=== PATIENT | female | born 1995 | race Caucasian/White ===

== ENCOUNTER 2018-09-23 15:13 | Observation (INO) ==
[2018-09-23 16:32] LABS: Amphetamine Screen,Urine Negative ng/mL (Cutoff=1000); Barbiturate Screen,Urine Negative ng/mL (Cutoff=200); Benzodiazepines Screen,Urine Negative ng/mL (Cutoff=200); Cannabinoid Screen,Urine Negative ng/mL (Cutoff = 50); Cocaine Screen,Urine Negative ng/mL (Cutoff= 300); Opiate Screen,Urine Negative ng/mL (Cutoff=300); Phencyclidine Screen,Urine Negative ng/mL (Cutoff=25)
[2018-09-23 16:51] LABS: Bilirubin,Urine Negative (Negative); Blood,Urine Negative (Negative); Clarity,Urine Clear (Clear); Color,Urine Dark Yellow (Yellow); Glucose,Urine (UA) >=1000 mg/dL (Normal); Ketones,Urine Trace mg/dL (Negative); Leukocyte Esterase,Urine Negative (Negative); Nitrite,Urine Negative (Negative); Protein,Urine Trace mg/dL (Neg-Trace); Specific Gravity,Urine > 1.030 (1.010-1.025); Urobilinogen,Urine Normal (Normal)
--- NOTE | 2018-09-23 17:28 | Discharge Summary ---
Date of Encounter: 09/23/18 Time of Encounter: 17:26 - Discharge Diagnosis (1) 29 weeks gestation of Priority: Primary Status: Acute Comments: Follow up with midwives as scheduled PTL parameters discussed Discharge home (2) Vaginal discharge during in third trimester Priority: Secondary Status: Acute Comments: Fern negative Nitrazine negative Vaginosis panel negative (3) -related glycosuria Priority: Secondary Status: Acute Comments: Attempted to reach patient to discuss elevated levels of urine glucose as well as trace ketones in the urine and elevated specific gravity. She was unable to be reached at this time. A message was left for her to return a call. - Discharge Medications Prescriptions: No Action Metoclopramide [Reglan] 5 mg PO Q8HR #60 mls Home Medications: Metoclopramide [Reglan] 5 mg PO Q8HR #60 mls 07/19/16 [Rx] Allergies/Adverse Reactions: Allergy/AdvReac Type Severity Reaction Status Date / Time No Known Allergies Allergy Verified 07/19/16 17:47 Data Procedures and tests throughout hospitalization: Laboratory Tests 09/23/18 09/23/18 16:16 16:16 Urine Color Dark Yellow Urine Clarity Clear Urine pH 6.0 Ur Specific [place] > 1.030 H Urine Protein Trace Urine Glucose (UA) >=1000 H Urine Ketones Trace H Urine Blood Negative Urine Nitrite Negative Urine Bilirubin Negative Urine Urobilinogen Normal Ur Leukocyte Esterase Negative Ur Culture Indicated? NO Urine Opiates Screen Negative Ur Barbiturates Screen Negative Ur Phencyclidine Scrn Negative Ur Amphetamines Screen Negative U Benzodiazepines Scrn Negative Urine Cocaine Screen Negative U Marijuana (THC) Screen Negative Ur Drug Screen Interp See Below Labs on day of discharge: Labs from last 24 hours 09/23/18 09/23/18 16:16 16:16 Urine Color Dark Yellow Urine Clarity Clear Urine pH 6.0 Ur Specific [place] > 1.030 H Urine Protein Trace Urine Glucose (UA) >=1000 H Urine Ketones Trace H Urine Blood Negative Urine Nitrite Negative Urine Bilirubin Negative Urine Urobilinogen Normal Ur Leukocyte Esterase Negative Ur Culture Indicated? NO Urine Opiates Screen Negative Ur Barbiturates Screen Negative Ur Phencyclidine Scrn Negative Ur Amphetamines Screen Negative U Benzodiazepines Scrn Negative Urine Cocaine Screen Negative U Marijuana (THC) Screen Negative Ur Drug Screen Interp See Below Date of admission: 09/23/18 15:13 Primary care physician: PCP NONE Discharging clinician: Kristi Tipton Anticipated date of discharge: 09/23/18 - Patient Status Disposition: Home, Self-Care Condition: Good Functional capacity at discharge: independent ambulation Overall status at discharge: patient is progressing back to baseline - Discharge Instructions Follow Up With: NONE,PCP [Primary Care Provider] - Kristi Tipton [Advanced Practice Nurse] - Additional Instructions: LABOR AND DELIVERY DISCHARGE INSTRUCTIONS Signs and Symptoms to be Reported to your Doctor Immediately: * Sudden gush, continuous or intermittent lead of fluid from vagina (note the time of gush and color of fluid) * Onset of bright red vaginal bleeding with or without pain (if you had a vaginal exam during this visit you may notice some dark red spotting. This is normal.) * Lower abdominal cramping or backache that is premenstrual-like feeling. * More than 6 contractions in one hour. * Burning during urination, having to urinate more frequently or pain in your mid-back. * A change in the baby's activity. This could be an increase or decrease in activity. * Severe headache which does not go away with tylenol. * Sudden swelling in the face, hands, arms and/or legs. * Upper abdominal pain - sometimes associated with heartburn or nausea and is not relieved by Maalox, Mylanta or Tums. * Dizziness or blurred vision or visual disturbances (seeing stars/lights). * Kick Counts One hour after a meal, lay down on one side in a quiet place. Count the number of sergio the baby moves during an hour. If less than 6 movements, notify your physician. Diet: *Force fluids - 8-10 tall glasses of fluid per day. May include popsicles and jello. 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 She reports that is clear and has no odor to it. She endorses good movement and denies vaginal bleeding and contractions. Fern test and nitrazine test were negative. Vaginosis panel and urine are pending. Patient requesting to go home and be called with follow-up results from labs. 1851: I called patient on 2 different from lines that were found in her chart she was unable to be reached regarding the elevated glucose in her urine as well as trace ketones and elevated specific gravity. A message is left for her to call back. Time Attestation: Total time spent providing and/or coordinating discharge services: Time Spent: Less than 30 minutes Exam - Constitutional General appearance IM: A&O X 3 - Respiratory Respiratory exam: Present: CTAB - Cardiovascular Cardiovascular exam IM: Present: RRR, +S1, +S2 - GI/Abdominal GI/Abdominal exam IM: normal bowel sounds, no peritoneal signs - Rectal Rectal exam: deferred - Uterine Tone: Firm - Extremities Exam Extremities exam IM: Present: normal capillary refill, normal inspection, radial pulses palpable and symmetrical - Neurological Exam Neurological exam: alert, CN II-XII intact, normal gait, oriented X3, reflexes normal, no focal deficits, strengths equal and symetr throughout - VTE Reasons for not Prescribing Prophylaxis: Treatment not Indicated - Low risk for VTE
[2018-09-23 18:34] LABS: Candida DNA Not Detected (Not Detect); Gardnerella DNA Not Detected (Not Detect); Trichomonas DNA Not Detected (Not Detect)
== END 2018-09-23 17:46 | disposition home or self-care (01) ==
LOC: 1NENULAB
PROVIDERS: ADMIT Advanced Practice Midwife; ATTEND Advanced Practice Midwife

== ENCOUNTER 2018-11-15 07:39 | Observation (INO) ==
[2018-11-15 08:15] LABS: Bilirubin,Urine Negative (Negative); Blood,Urine Negative (Negative); Clarity,Urine Clear (Clear); Color,Urine Dark Yellow (Yellow); Glucose,Urine (UA) Normal (Normal); Ketones,Urine >=160 mg/dL (Negative); Leukocyte Esterase,Urine Small (Negative); Nitrite,Urine Negative (Negative); PH,Urine 6.5 pH Units (5.0-8.0); Protein,Urine Negative (Neg-Trace); Urobilinogen,Urine Normal (Normal)
[2018-11-15 08:16] LABS: Bacteria,Urine Few per hpf (None-Few); Hyaline Casts,Urine None Seen per lpf (None-Few); Squamous Epithelial Cell,Urine Many per lpf (None-Few)
[2018-11-15 08:23] LABS: Amphetamine Screen,Urine Negative ng/mL (Cutoff=1000); Barbiturate Screen,Urine Negative ng/mL (Cutoff=200)
[2018-11-15 08:25] LABS: Benzodiazepines Screen,Urine Negative ng/mL (Cutoff=300); Cannabinoid Screen,Urine Negative ng/mL (Cutoff = 50); Cocaine Screen,Urine Negative ng/mL (Cutoff= 300); Opiate Screen,Urine Negative ng/mL (Cutoff=300); Phencyclidine Screen,Urine Negative ng/mL (Cutoff=25)
--- NOTE | 2018-11-15 10:44 | OB/GYN Progress Note ---
Date of Encounter: 11/15/18 Time of Encounter: 10:42 - Assessment and Plan (1) 37 weeks gestation of Current Visit: Yes Status: Acute (2) False labor Current Visit: Yes Status: Acute Repeat SVE unchanged x2. Discharge home with labor precautions. Subjective - Subjective Interval history: 23 year-old presenting at 37w2d with c/o contractions since 1900 last evening. She reports they woke her about every 1.5 hours last night. She reports they get stronger and closer when she walks but decrease when she lays down. No leaking or bleeding. Good FM. No other complaints. Antepartum ROS: movement normal, contractions, no loss of fluid, no vaginal bleeding Objective - Vital Signs Vital Signs: Intake and Output 11/14/18 11/15/18 11/15/18 23:59 07:59 15:59 Other: Weight 93.9 kg Patient Weight 11/15/18 23:59 Weight 93.9 kg - Exam FHR: category 1 FHR comments: NST reactive. 145 BPM Auscultation: bilateral: normal Abdomen: Present: soft, gravid. Absent: tenderness Uterus: Absent: tenderness Cervical dilation: 2cm with repeat exam unchanged x2 per RN - Labs Labs: Abnormal lab results >=160 mg/dL (Negative) H 11/15/18 07:55 Ur Leukocyte Esterase Small (Negative) H 11/15/18 07:55 5-15 per hpf (0-3) H 11/15/18 07:55 3-5 per hpf (0-3) H 11/15/18 07:55 Ur Squamous Epith Cells Many per lpf (None-Few) H 11/15/18 07:55 Ur Culture Indicated? YES (NO) A 11/15/18 07:55
== END 2018-11-15 10:44 | disposition home or self-care (01) ==
LOC: 1NENULAB
PROVIDERS: ADMIT Registered Nurse; ATTEND Registered Nurse

== ENCOUNTER 2018-11-27 06:00 | Inpatient (IN) ==
[2018-11-27] MEDS ORDERED: Famotidine 20 MG/2 ML VIAL IVP PRN (06:16)
[2018-11-27] MEDS ORDERED: Naloxone 0.4 MG/ML INJ IVP PRN (06:16)
[2018-11-27] MEDS ORDERED: Lidocaine 1% 20 ML MDV INFILT PRN (06:16)
[2018-11-27] MEDS ORDERED: *HR* Nalbuphine 10 MG/ML AMPUL IVP PRN (06:16)
[2018-11-27] MEDS ORDERED: Metoclopramide 10 MG/2 ML VIAL IVP PRN (06:16)
[2018-11-27] MEDS ORDERED: Ondansetron 4 MG/2 ML VIAL IVP PRN (06:16)
[2018-11-27] MEDS ORDERED: miSOPROStol 25 MCG TABLET PO ONE (06:20)
[2018-11-27] MEDS ORDERED: Penicillin G Potassium 5,000,000 UNIT in 0.9 % Sodium Chloride Mini Bag 100 ML IVPB ONE (06:20)
[2018-11-27] MEDS ORDERED: Ringers Solution, Lactated 1,000 ML IVC SCH (06:30)
--- NOTE | 2018-11-27 06:44 | OB/GYN History & Physical ---
Date of Encounter: 11/27/18 Time of Encounter: 06:43 Assessment and Plan (1) 39 weeks gestation of Current visit: Yes Status: Acute Admit to L&D for induction of labor 50 g Cytotec by mouth Double kearney balloon placed with 60 mL in each balloon Continuous electronic monitoring Labs-CBC and type and screen Pain management plan is epidural - may have upon request Anticipate vaginal delivery Dr. Gallegos is the OB on-call and is available as needed (2) Intrauterine Current visit: Yes Status: Acute (3) Intact amniotic membranes during in third trimester Current visit: Yes Status: Acute (4) Type A blood, Rh negative Current visit: Yes Status: Acute Cord blood to be collected for analysis on delivery (5) GBS (group B Streptococcus carrier), +RV culture, currently Current visit: Yes Status: Acute 5 million units penicillin IV 1 followed by 2.5 million units penicillin IV every 4 hours until delivery History of Present Illness Chief complaint: Scheduled IOL HPI: Ms. Ortega is a 23 year old female at 39 weeks 0 days gestation with an estimated date of of 12/04/18 dated by initial exam. She presents today for scheduled induction of labor at term. She endorses good movement and denies leakage of fluid, vaginal bleeding, contractions. She has been followed by the midwives throughout her . Her has been uncomplicated. records are available electronically and have been reviewed. Labs: A- GBS+ HIV- Hep B- T. Palladium- GC/CL- Rubella immune Varicella immune Past Med Surg Social Fam HX - Past Medical History Medical history: no medical history Psychiatric history: no psych history - Past Surgical History Additional surgical history: R leg sx for compound fx. - Social History Smoking Status: Never smoker Alcohol use: none Drug use: none - Family History Mother Living Status: Still Living Hx Family Cardiac Disorders: No Hx Family Respiratory Disorders: No Hx Family Cancer: No Hx Family GI Disorders: No Hx Family Endocrine Disorder: No Hx Family Neuromuscular Disorders: No Hx Family Neurologic Disorders: No Hx Family HEENT Disorders: No Hx Family Autoimmune Disorders: No Hx Family Psychosocial Disorders: Yes (anxiety and depression) Obstetrical History - Pregnancies : 3 Para: 1 Term: 1 (# 2: 03/04/2017,female, normal spontaneous vaginal delivery (), no complications, full term, 7lbs) : 0 Ab's: 1 (# 1: 2014., ectopic at 7 weeks) Livin Medications and Allergies [id number]/Ferrous Fumarate/FA [Kro Vitamins Tablet] 1 mg PO DAILY 11/15/18 [History] Allergy/AdvReac Type Severity Reaction Status Date / Time No Known Allergies Allergy Verified 11/27/18 06:31 Review of System OB All systems PM: reviewed and no additional remarkable complaints except as stated Exam - Constitutional Constitutional: well developed, well nourished, no acute distress, obese - HEENT HEENT: PERRL, Normocephaly, Mucus Membranes Moist - Neck Neck exam: full ROM - Lungs Respiratory exam: CTAB - Cardiovascular Cardiovascular exam: RRR, +S1, +S2 - Breasts Breast: bilateral: normal - Abdomen Abdomen: Present: bowel sounds normal, gravid, non tender - Extremities Extremities exam: full ROM, normal capillary refill, normal inspection, radial pulses palpable and symmetrical - Vulva Vulva: bilateral: normal - Vagina Vagina: Present: normal moisture - Cervix Dilation: 3 Effacement: 80 Station: -2 - Uterus Uterus exam: Present: normal contour - Adnexa Adnexa: bilateral: normal - Anus/Rectum Anus/Rectum: Present: normal perianal skin Results Result Diagrams: 11/27/18 06:35 All other labs normal. - VTE Reasons for not Prescribing Prophylaxis: Treatment not Indicated - Low risk for VTE
[2018-11-27 06:50] LABS: Basophils % 0.4 %; Eosinophils # 0.1 K/mcL (0.0-0.6); Eosinophils % 0.7 %; Hematocrit 29.8 % (35.3-44.9); Hemoglobin 9.4 g/dL (11.5-15.4); Lymphocytes # 2.3 K/mcL (0.6-4.6); Lymphocytes % 32.2 %; Mean Corpuscular HGB Conc 31.5 g/dL (31.6-35.5); Mean Corpuscular Hemoglobin 23.9 pg (28.0-33.3); Mean Corpuscular Volume 75.6 fL (83.0-100.0); Mean Platelet Volume 10.2 fL (9.4-12.4); Monocytes # 0.8 K/mcL (0.0-1.3); Platelet Count 253 K/mcL (140-400); Red Blood Count 3.94 M/mcL (3.82-4.97); Red Cell Distribution Width 14.4 % (11.5-14.5); Segmented Neutrophils % 54.7 %
[2018-11-27 06:54] LABS: Amphetamine Screen,Urine Negative ng/mL (Cutoff=1000); Barbiturate Screen,Urine Negative ng/mL (Cutoff=200)
[2018-11-27 06:55] LABS: Benzodiazepines Screen,Urine Negative ng/mL (Cutoff=300); Cannabinoid Screen,Urine Negative ng/mL (Cutoff = 50); Cocaine Screen,Urine Negative ng/mL (Cutoff= 300); Opiate Screen,Urine Negative ng/mL (Cutoff=300); Phencyclidine Screen,Urine Negative ng/mL (Cutoff=25)
[2018-11-27] MEDS ORDERED: *HR* FentaNYL (PF) 100 MCG/2 ML VIAL EP ONE (09:09)
[2018-11-27] MEDS ORDERED: Bupivacaine-MPF 0.25% 10 ML VIAL EP ONE (09:09)
--- NOTE | 2018-11-27 09:09 | Anesthesia Evaluation PreOp ---
Date of Encounter: 11/27/18 Time of Encounter: 09:07 - Past History Planned Operation: JORGE Cardiac History: Denies any Significant Hx Pulmonary History: Denies Any Significant HX MEDICAL CASE MANAGER History: Denies Any Significant HX Other Medical History: Denies Any Significant HX Anesthesia History: No Prior Anesthetic Complications (JORGE x 1--no issues; denies personal and family h/o GA complications) : Yes Alcohol Use: none Drug use: none Medications and Allergies [id number]/Ferrous Fumarate/FA [Kro Vitamins Tablet] 1 mg PO DAILY 11/15/18 [History] Allergy/AdvReac Type Severity Reaction Status Date / Time No Known Allergies Allergy Verified 11/27/18 06:31 - Meds/Allergy Pre-op Review Medications Reviewed: Yes Allergies Reviewed: Yes Beta Blockers on Current Med List: No Anesthesia Results - Labs 11/27/18 06:35 Anesthesia Exam 98/59, HR 77 O2 Sat Height 1.57 m Weight 95.753 kg Pain Scale: 3 Pain Scale Used: Dorene (Faces) - HEENT Pupil (Motor): Pupils equal Mallampati: II Teeth: Normal Oral Opening: Greater than 3 - MEDICAL CASE MANAGER LOC: Oriented MEDICAL CASE MANAGER Motor: Normal RUE, Normal LUE, Normal RLE, Normal LLE, Normal Face MEDICAL CASE MANAGER Sensory: Normal: RUE, LUE, RLE, LLE, Face - Cardiac Rhythm: Regular Murmur: None - Pulmonary Breath Sounds: bilateral Clear Respiratory Effort: Symmetrical Anesthesia Assess/Plan ASA Score: 2 Level of consciousness: Cooperative, Oriented, Tranquil Anesthetic Plan: Epidural Autologous Blood: No Monitoring Plan: Standard Monitors Recovery Plan: Other
[2018-11-27] MEDS ORDERED: Epidural Premix (fent/bupiv) 110 ML EP SCH (09:15)
[2018-11-27] MEDS ORDERED: Bupivacaine-MPF 0.25% 10 ML VIAL ONE (09:26)
[2018-11-27] MEDS ORDERED: *HR* FentaNYL (PF) 100 MCG/2 ML VIAL ONE (09:26)
[2018-11-27] MEDS: Penicillin G Potassium 2,500,000 UNIT in 0.9 % Sodium Chloride 100 ML IVPB SCH ×3 (10:47→19:21)
[2018-11-27] MEDS ORDERED: Oxytocin 20 units/ LR 1000 mL 20 UNIT/1,000 ML BAG IVC ONE (12:19)
[2018-11-27] MEDS: Oxytocin 20 units/ LR 1000 mL 20 UNIT/1,000 ML BAG IVC SCH ×2 (12:28→23:42)
--- NOTE | 2018-11-27 15:21 | Anesthesia Procedures ---
Date of Encounter: 11/27/18 Time of Encounter: 15:19 Procedures: Anesthesia - Epidural/Spinal Patient ID/Chart reviewed: Yes Patient examined: Yes OB Eval: Gestational age: 39 weeks 0 days OB Eval: : 3 OB Eval: Hx Para: 1 OB Eval: Contractions: Non-stressed pattern Consent Obtained: Yes Supplemental Oxygen: None/Room Air Site Prep: Aseptic Technique, Sterile prep and drape, Povidone-Iodine 1% Patient position: upright Local Anesthetic: Lidocaine 1% Amount of Local Anesthetic used: 5 Touhy Needle Gauge: 18 Touhy Needle Depth (cm): 6 Catheter Depth at Skin (cm): 11 Test Dose (1.5% Lido + Epi): Volume given (mls): 5 Test Dose Result: Negative Loading Dose: 0.25% Marcaine (mls): 5 Loading Dose: Fentanyl (mcg): 100 Loading Dose Administered: Thru Catheter Infusion Med: 0.125% Bupivacaine w/ 2 mcg/ml Fentanyl Infusion Rate (mls/hr): 14 (w/ demand bolus of 5mL q30min PRN) Catheter Secured in Place: Tegaderm, Tape Interspace Used: L3-L4 Loss of Resistance (MARI): Yes Blood: No CSF: No Paresthesia: No Procedure: successful on 1st attempt; patient tolerated procedure well; VSS Vitals + FHT's: see Jenna SPARROW's electronic records for VS entry
--- NOTE | 2018-11-27 19:03 | Anesthesia Progress Note ---
Date of Encounter: 11/27/18 Time of Encounter: 19:02 Anesthesia Note - Note Note: Called to patient bedside to evaluate breakthrough labor pain. Patient describes B/L lower pelvic pain/pressure; 10mL of 0.125% bupivicaine in 2 equally divided doses given over a period of 10min. Patient reports improvement in pain. VSS 11/27/18 19:02
--- NOTE | 2018-11-27 19:37 | OB Labor Progress Note ---
Date of Encounter: 11/27/18 Time of Encounter: 15:53 Labor Progress Note - Subjective Subjective: Pt comfortable with epidural - Cervix Cervix: 6-7/80/-1 - Heart Tones Heart Tones: Category I - [place]: irrregular - Interventions Interventions: AROM for large amount clear fluid. - Plan Physician notified: Yes Physician notified details: Dr. Gallegos notified of AROM. Plan: Continue to monitor and titrate pitocin. Anticipate .
--- NOTE | 2018-11-27 22:03 | OB/GYN Procedure Note ---
Delivery - Delivery Date: 11/27/18 Provider: Naz Woods Intrapartum events: none Delivery induction: kearney, misoprostol Delivery augmentation: rupture of membranes, pitocin Delivery monitor: external FHT, external uterine Anesthesia: epidural Quantitated Blood Loss: 200 - (s) A Infant Delivery Date: 11/27/18 Delivery Time: 21:05 Presentation: vertex Position: OA Route of delivery: Gender: Male Viability: Viable Pounds: 9 Ounces: 4 Weight Gram: 4.195 kg at 1 minute: 6 at 5 mins: 9 Shoulder Dystocia: not encountered Specimens collected: cord blood, venous cord gases, arterial cord gases Placenta: spontaneous Cord: nuchal cord (around shoulder, delivered through) - Repair Episiotomy: none Laceration Description: None - Complications Delivery complications: none - Disposition Mom disposition: stable in LDR disposition: stable in LDR - Comments Comments: Pt presented for IOL and underwent induction with a kearney balloon, cytotec, AROM, and pitocin. She had an epidural. She then progressed normally and pushed effectively in side lying position. She had a over intact perineum for viable male weighing [id number] with apgars 6 at one minute and 9 at five minutes. A nuchal cord was noted around the shoulder and was delivered through. No shoulder dystocia was encountered. The infant delivered in direct OA position under maternal expulsive efforts only. The infant was not vigorous at and therefore the umbilical clamp was quickly clamped and cut and the infant was handed off to nursery staff in DR. After a 30 minute delay the placenta delivered spontaneous and intact (kary). No lacerations noted. EBL 200ml. Mother and baby stable following . Cord gases were obtained venous ph 7.26, arterial 7.08.
[2018-11-28] MEDS ORDERED: Oxytocin 20 units/ LR 1000 mL 20 UNIT/1,000 ML BAG IVC SCH (00:17)
[2018-11-28] MEDS ORDERED: Benzocaine/Menthol 56 GM AEROSOL SPRAY TP PRN (00:17)
[2018-11-28] MEDS ORDERED: Acetaminophen 325 MG TABLET PO PRN (00:17)
[2018-11-28] MEDS ORDERED: Rho Immune Globulin 1,500 UNIT SYRINGE IM PRN (00:17)
[2018-11-28] MEDS ORDERED: Lanolin 7 G OINT...G. TP PRN (00:17)
[2018-11-28] MEDS: Ibuprofen 600 MG TABLET PO PRN ×2 (07:47→19:37)
[2018-11-28] MEDS ORDERED: Prenatal Vit/FA 1 EACH TABLET PO SCH (09:00)
--- NOTE | 2018-11-28 09:20 | Discharge Summary ---
Date of Encounter: 11/28/18 Time of Encounter: 09:17 - Discharge Diagnosis (1) Vaginal delivery Priority: Primary Status: Acute Comments: continue routine care discharge home today follow up with CNM in 4-6 weeks (2) Breast feeding status of mother Priority: Secondary Status: Acute Comments: support prn - Discharge Medications Prescriptions: New Breast Pump [BREAST PUMP] 1 each .ROUTE AD #1 each Benzocaine/Menthol Tabor [Dermoplast Tabor] 1 appl TP QID PRN aerosol PRN Reason: See Comments Lanolin [Lansinoh] 1 appl TP Q4HR PRN oint...g. PRN Reason: Ibuprofen [Motrin] 600 mg PO Q6HR PRN #60 tablet PRN Reason: Cramping Continued Cvh630/Ferrous Fumarate/FA [Kro Vitamins Tablet] 1 mg PO DAILY Home Medications: Kef754/Ferrous Fumarate/FA [Kro Vitamins Tablet] 1 mg PO DAILY 11/15/18 [History] Benzocaine/Menthol Tabor [Dermoplast Tabor] 1 appl TP QID PRN aerosol 11/28/18 [Rx] Breast Pump [BREAST PUMP] 1 each .ROUTE AD #1 each 11/28/18 [Rx] Ibuprofen [Motrin] 600 mg PO Q6HR PRN #60 tablet 11/28/18 [Rx] Lanolin [Lansinoh] 1 appl TP Q4HR PRN oint...g. 11/28/18 [Rx] Allergies/Adverse Reactions: Allergy/AdvReac Type Severity Reaction Status Date / Time No Known Allergies Allergy Verified 11/27/18 06:31 Data Procedures and tests throughout hospitalization: Laboratory Tests 11/27/18 11/27/18 11/27/18 06:35 06:35 22:55 WBC 7.2 RBC 3.94 Hgb 9.4 L Hct 29.8 L MCV 75.6 L MCH 23.9 L MCHC 31.5 L RDW 14.4 Plt Count 253 MPV 10.2 Immature Gran % 1.0 Seg Neutrophils % 54.7 Lymphocytes % 32.2 Monocytes % 11.0 Eosinophils % 0.7 Basophils % 0.4 Neutrophils # 4.0 Lymphocytes # 2.3 Monocytes # 0.8 Eosinophils # 0.1 Basophils # 0.0 Urine Opiates Screen Negative Ur Barbiturates Screen Negative Ur Phencyclidine Scrn Negative Ur Amphetamines Screen Negative U Benzodiazepines Scrn Negative Urine Cocaine Screen Negative U Marijuana (THC) Screen Negative Ur Drug Screen Interp See Below Baby's Blood Type A RH POSITIVE Mother's Blood Type A RH NEGATIVE Rhogam Indicated YES Labs on day of discharge: Labs from last 24 hours 11/27/18 22:55 Screen Pending Baby's Blood Type A RH POSITIVE Mother's Blood Type A RH NEGATIVE Rhogam Indicated YES Rhogam Req for Mother Pending Date of admission: 11/27/18 06:04 Primary care physician: PCP NONE Consults: 11/28/18 00:17 Consult to Mechanical And Auto [employer] Car Checker [CONS] Routine Comment: Vaginal delivery, consult needed Discharging clinician: Lainey Burch Anticipated date of discharge: 11/28/18 - Patient Status Disposition: Home, Self-Care Condition: Good Functional capacity at discharge: independent ambulation - Discharge Instructions Follow Up With: NONE,PCP [Primary Care Provider] - Naz Woods CNM [Non-Partnered Physician] - - Diet and Activity Activity: increase activity as tolerated Diet: regular diet Hospital Course Reason for admission: induction of labor Delivery: Episiotomy: none Laceration: none Other procedures: none complications: none Discharge diagnosis: IUP at term delivered baby: male (breast feeding) Time Attestation: Total time spent providing and/or coordinating discharge services: Time Spent: Less than 30 minutes Exam - Constitutional Vitals: Temp Pulse Resp BP Pulse Ox 98.1 F 83 12 95/63 97 11/28/18 07:40 11/28/18 07:40 11/28/18 07:40 11/28/18 07:40 11/28/18 07:40 General appearance IM: A&O X 3, pleasant, answers questions appropriately - Respiratory Respiratory exam: Present: CTAB - Cardiovascular Cardiovascular exam IM: Present: RRR, +S1 - Uterine Tone: Firm Uterus Position: At Umbilicus, Midline - Neurological Exam Neurological exam: alert, oriented X3, reflexes normal
[2018-11-28 21:18] VITALS: BP 108/75
== END 2018-11-28 21:40 | disposition home or self-care (01) | DRG 807 ==
LOC: 1NENULAB 06:04 → 1NENUOBS 11-28 00:13
PROVIDERS: ADMIT Registered Nurse; ATTEND Registered Nurse